=== PATIENT | male | born 1975 | race Caucasian/White ===

== ENCOUNTER → 2021-04-14 | Outpatient (CLI) | payer OTHER ==
--- NOTE | 2021-04-15 13:08 | RAD ---
US EXT NON VASC LEFT History:Reason: LT INGUINAL BULGING/PAIN X2 WEEKS AFTER EXERCISE / Spl. Instructions: / History: Comparison: None Technique: Sonographic examination of the left inguinal region Findings: No evidence of inguinal hernia. Peristalsing bowel within the region of the the patient's concern. Impression: 1. No ultrasound evidence of inguinal hernia. Electronically signed by: Dane Reyes DO (04/15/2021 1:06 PM) [id number]
== END ==
LOC: US 15:47
PROVIDERS: ATTEND Family Medicine
DX: R10.32 Left lower quadrant pain (principal)
CPT/HCPCS: 76881

== ENCOUNTER 2021-06-08 12:37 | Emergency (ER) | payer OTHER ==
[~2021-06-08] VITALS: Ht 175.3 cm; Wt 79.0 kg
[2021-06-08] MEDS ORDERED: HYDROcodone/APAP 5/325MG 1 TAB TABLET PO ONE (13:00)
--- NOTE | 2021-06-08 13:05 | PHYS DOC ---
General Adult HPI: HPI: Patient is a 46-year-old male who presents to the emergency department for left posterior ankle and heel pain that occurred yesterday. Patient reports that he was running and he felt pain in the back of his ankle like someone had hit him across ankle with that. He states that he has been able to bear weight. He rates his pain 10 out of 10. He has been applying ice and taking Naprosyn. Patient is reporting bruising, swelling to the back of his left ankle and foot. He denies any decreased range of motion or decrease sensation in his extremity. (LYLE ALBA APRN) Review of Systems: Review of Systems: Musculoskeletal: See HPI Integument: See HPI Neurologic: See HPI (LYLE ALBA APRN) Current Medications: Current Meds: Current Medications Medications (Trade) Dose Ordered Sig/Yesica Start Time Stop Time Status Last Admin Dose Admin Acetaminophen/ Hydrocodone Bitart (Lortab 5/325) 1 tab 1X ONCE 06/08/21 13:00 06/08/21 13:01 UNV (LYLE ALBA APRN) Physical Exam: PE: Constitutional: Well developed, well nourished, no acute distress, non-toxic appearance. [] HENT: Normocephalic, atraumatic, bilateral external ears normal, oropharynx moist, no oral exudates, nose normal. [] Eyes: PERRL, EOMI, conjunctiva normal, no discharge. [] Neck: Normal range of motion, no stridor Cardiovascular: Normal peripheral perfusion Lungs & Thorax: Normal work of breathing, no tachypnea Abdomen: Soft, and flat Skin: Warm, dry, no erythema, no rash. [] Back: Normal range of motion Extremities: No tenderness, no cyanosis, no clubbing, ROM intact, no edema. [] Left foot/ankle: Ecchymosis noted to posterior foot/heel as well as lateral and medial ankle, swelling noted to the posterior heel calf, range of motion intact, neuro intact, positive Kearns's test Neurologic: Alert and oriented X 3, normal motor function, normal sensory function, no focal deficits noted. [] Psychologic: Affect normal, judgement normal, mood normal. [] (LYLE ALBA APRN) EKG: EKG: [] (LYLE ALBA APRN) Radiology/Procedures: Radiology/Procedures: []PROCEDURE: ANKLE RIGHT 3V EXAM: XR EXAM OF ANKLE_RIGHT 3VIEWS 06/08/2021 1:16 PM CLINICAL INDICATION: Posterior ankle pain after running yesterday COMPARISON: None TECHNIQUE: AP, oblique, and lateral views of the right ankle FINDINGS: There is no acute fracture. Alignment is normal. Ankle mortise is symmetric and talar dome is intact. Mild circumferential soft tissue swelling. IMPRESSION: No acute osseous abnormality. Mild circumferential soft tissue s welling at the ankle. Electronically signed by: Lorraine Charles MD (06/08/2021 1:22 PM) [id number] DICTATED AND SIGNED BY: LORRAINE CHARLES MD DATE: 06/08/211320 CC: LM KOHLER; LYLE ALBA APRN ~MTH0 0 (LYLE ALBA APRN) Heart Score: C/O Chest Pain: N/A Risk Factors: Risk Factors: DM, Current or recent (<one month) smoker, HTN, HLP, family history of CAD, obesity. Risk Scores: Score 0 - 3: 2.5% MACE over next 6 weeks - Discharge Home Score 4 - 6: 20.3% MACE over next 6 weeks - Admit for Clinical Observation Score 7 - 10: 72.7% MACE over next 6 weeks - Early Invasive Strategies (LYLE ALBA APRN) Course & Med Decision Making: Course & Med Decision Making Pertinent Labs and Imaging studies reviewed. (See chart for details) [] Patient presents to the emergency department for left posterior ankle/foot pain while running yesterday. Patient reports that it feels like a bat hit him across the back of his ankle. He had a positive Kearns's test and does have swelling, ecchymosis and pain noted to the back of his ankle along his Achilles into his calf. X-ray was performed to rule out fracture which showed no acute findings. Patient was placed in a posterior splint. He tolerated procedure. Neurovascularly intact pre and post splint placement. He was given crutches and crutch training and told to not bear weight. Emergency department as well as pain patient. He does have a orthopedic doctor at [place] Dr. Basurto which he follows up with and will call on Wednesday. I discussed with patient all findings and diagnostic testing as well as the need to follow-up with PCP for further evaluation and treatment or return to the ER if any new or worsening symptoms. Strict return precautions were also discussed at length. Patient voiced understanding and agreement with the plan. Patient is hemodynamically stable at the time of disposition. (LYLE ALBA APRN) Dragon Disclaimer: Lalitha Disclaimer: This electronic medical record was generated, in whole or in part, using a voice recognition dictation system. (LYLE ALBA APRN) Attending Co-Sign The patient was seen and interviewed as well as examined at the bedside. The [facility] rt was reviewed. The case was discussed. Agree with the plan of care. (CHINMAY HASSAN DO) Departure Departure: Impression: Primary Impression: Achilles tendon rupture Qualified Codes: S86.012A - Strain of left Achilles tendon, initial encounter Disposition: HOME / SELF CARE / HOMELESS Condition: GOOD Referrals: LM KOHLER (PCP) BRADLEY KUMAR II, MD Patient Instructions: Achilles Tendon Rupture (Complete) Additional Instructions: You were seen in the emergency department for left ankle pain. Your x-ray was performed to rule out fracture which showed no acute findings. It is likely that you tore ruptured your Achilles tendon. You had a splint placed to help with pain and healing. You will need to follow-up with the orthopedic doctors in the orthopedic clinic as soon as possible. Please contact your orthopedic doctor on Wednesday to get into an appointment. If you cannot get into the orthopedic doctor in a timely manner, you can follow-up with the orthopedic doctor attached to this paperwork. You are also being sent home with crutches. Please make sure that you use the crutches and do not bear weight. You should perform range of motion exercises to prevent stiffness of your joints. Splints help with the pain and can promote healing but immobility can cause chronic pain over time. Please refer to these attached instructions regarding range of motion exercises. Keep the splint clean and dry avoid getting it wet. If the splint gets wet you will need to have it replaced. You should use ice and elevation to help with the swelling and pain. For the first 24 hours apply ice 20 minutes on 20 minutes off 4 times per day. Ensure that ice is in a plastic bag as to not get the splint wet. You may take NSAID medications ( ibuprofen, naproxen) to help with the pain. If you require any pain management for severe pain, you are being discharged home with a medication called [place] which is hydrocodone and Tylenol and a combination tablet. Do not take any additional Tylenol with this medication. This medication may cause sedation so do not take any need to be alert, driving a vehicle or with alcohol. Please return to the emergency department if you develop any of the following symptoms: Increasing pain that does not improve with treatments. New numbness or tingling Warmth, redness, skin discoloration, skin breakdown, drainage from under splint or near splinted area. Increasing inability to move your extremity or digits. Foul odor coming from splint Fevers or chills Nausea or vomiting Persistent lightheadedness We would be happy to see you for any other concerning symptoms regarding your splinted extremity. Scripts Hydrocodone Bit/Acetaminophen (HYDROCODONE-APAP 5-325 ) 1 Each Tablet 1 TAB PO PRN Q6HRS PRN for PAIN for 2 Days, #8 TAB 0 Refills Prov: LYLE ALBA APRN 06/08/21 LYLE ALBA APRN Jun 08, 2021 13:05 CHINMAY HASSAN DO Jun 09, 2021 11:25
--- NOTE | 2021-06-08 13:24 | RAD ---
EXAM: XR EXAM OF ANKLE_RIGHT 3VIEWS 06/08/2021 1:16 PM CLINICAL INDICATION: Posterior ankle pain after running yesterday COMPARISON: None TECHNIQUE: AP, oblique, and lateral views of the right ankle FINDINGS: There is no acute fracture. Alignment is normal. Ankle mortise is symmetric and talar dome is intact. Mild circumferential soft tissue swelling. IMPRESSION: No acute osseous abnormality. Mild circumferential soft tissue swelling at the ankle. Electronically signed by: Lorraine Charles MD (06/08/2021 1:22 PM) [id number]
[2021-06-08] MEDS ORDERED: HYDR-2155 PO (13:28)
[2021-06-08 14:02] VITALS: BP 142/89
== END 2021-06-08 14:05 | disposition home or self-care (01) ==
LOC: ER 12:37
DX: S86.012A Strain of left Achilles tendon, initial encounter (principal); X58.XXXA Exposure to other specified factors, initial encounter; Y93.02 Activity, running; Y92.89 Other specified places as the place of occurrence of the external cause; Y99.8 Other external cause status
CPT/HCPCS: 29515; 73610; 99283